=== PATIENT | male | born 1955 | race Caucasian/White ===

== ENCOUNTER → 2021-06-06 14:32 | Outpatient (CLI) | payer MEDICARE, OTHER, SELFPAY ==
[2021-06-06 15:07] LABS: Basophils # 0.2 K/mm3 (0-0.2); Basophils % 2.1 % (0.1-2.0); Eosinophils # 0.6 K/mm3 (0.0-0.4); Eosinophils % 5.8 % (0.1-12.0); Hematocrit 54.5 % (42.0-52.0); Lymphocytes # 3.3 K/mm3 (0.7-4.5); Lymphocytes % 31.9 % (10-50); Mean Corpuscular HGB Conc 31.3 g/dL (31.8-35.4); Mean Corpuscular Hemoglobin 32.8 pg (27.0-31.2); Mean Corpuscular Volume 104.8 fl (80-94); Mean Platelet Volume 9.5 fl (7.4-10.4); Monocytes # 0.6 K/mm3 (0.1-1.0); Monocytes % 5.9 % (1.7-9.3); Neutrophils # 5.7 K/mm3 (1.8-7.8); Neutrophils % 54.4 % (37.0-80.0); Platelet Count 336 K/mm3 (142-424); Red Cell Distribution Width 15.1 % (11.5-17.5); White Blood Count 10.4 K/mm3 (4.8-10.8)
--- NOTE | 2021-06-06 15:07 | CT_ITS ---
FINAL REPORT CLINICAL HISTORY: H/O NICOTINE DEPENDENCE FINDINGS: Low-Dose Chest CT CTDI vol (mGy): 2.90 DLP (mGy-cm): 118.55 Axial images were obtained from the lung apex to the mid abdomen by computed tomography. Low-dose protocol was utilized. FINDINGS: CHEST: There is no axillary adenopathy. There is no mediastinal adenopathy. There is calcified right paratracheal and right hilar lymph nodes. The heart is proper size. There is no pericardial or pleural effusion. On the limited images of the upper abdomen there appears to be aneurysmal dilatation of the proximal abdominal aorta measuring up to 3.7 cm. Lung window images demonstrate mild linear scarring in the right mid lung. There is a tiny, 3 mm nodule in the posterior right upper lobe well seen on image 17 of series 4. IMPRESSION: 3 mm nodule in the posterior right upper lobe. Modifier S: Aneurysmal dilatation of the proximal abdominal aorta measuring up to 3.7 cm. Recommend infused abdomen and pelvis CT for further evaluation. Lung RADS category 2S. Recommend 12 month follow-up low-dose chest CT. Reviewed, Interpreted and Dictated by Jeremiah Barakat MD Transcribed by Francia Flor Authenticated by Jeremiah Barakat MD on 06/06/2021 04:44:22 PM [facility]
[2021-06-06 15:18] LABS: Alanine Aminotransferase 19 U/L (12-78); Albumin Level 4.2 g/dl (3.5-5.0); Albumin/Globulin Ratio 1.3 (1.1-1.8); Alkaline Phosphatase 69 U/L (38-126); Anion Gap 11.6 mEq/L (5-15); Aspartate Amino Transferase 32 U/L (17-59); Blood Urea Nitrogen 10 mg/dl (9-20); Carbon Dioxide 29 mmol/L (22.0-30.0); Chloride 101 mmol/L (98-107); Estimated Glomerular Filt Rate 97 ml/min (>60); GFR (African American) 117 ML/MIN (>60); Globulin 3.3 g/dL (1.3-3.2); Glucose 119 mg/dl (74-100); Potassium 4.6 mmoL/L (3.5-5.1); Sodium 137 mmol/L (136-145); Total Protein,Serum 7.5 g/dl (6.3-8.2)
[2021-06-06 16:15] LABS: Chol/HDL Ratio 3.3 (1-3.5); Cholesterol 195 mg/dl (140-200); HDL Cholesterol 59 mg/dl (40-60); Triglycerides 91 mg/dl (30-150); VLDL Cholesterol 18 mg/dL (0-40)
[2021-06-06 16:45] LABS: Prostate Specific Ag Screen 1.2 ng/ml (0.0-4.0)
[2021-06-06 18:09] LABS: Hemoglobin A1C 5.4 % (4.0-6.0)
== END ==
PROVIDERS: PCP Family Medicine; Visit Provider Family Medicine
DX: Z00.00 Encounter for general adult medical examination without abnormal findings (principal); Z87.891 Personal history of nicotine dependence; Z12.2 Encounter for screening for malignant neoplasm of respiratory organs; R00.0 Tachycardia, unspecified; I10 Essential (primary) hypertension; R73.9 Hyperglycemia, unspecified; J44.9 Chronic obstructive pulmonary disease, unspecified; Z13.220 Encounter for screening for lipoid disorders; Z12.5 Encounter for screening for malignant neoplasm of prostate
CPT/HCPCS: 36415; 71271; 80053; 80061; 83036; 85025; G0103

== ENCOUNTER → 2021-06-26 09:36 | Outpatient (CLI) | payer MEDICARE, OTHER, SELFPAY ==
--- NOTE | 2021-06-26 09:45 | CT_ITS ---
FINAL REPORT CLINICAL HISTORY: ANEURYSM, FINDINGS: Technique: The patient was injected with intravenous contrast. Axial images through the abdomen and pelvis were performed. This study was performed with techniques to keep radiation doses as low as reasonably achievable (ALARA). Individualized dose reduction techniques using automated exposure control or adjustment of mA and/or kV according to the patient's size were employed. Abdomen: The lung bases are clear. The liver is homogeneous. The gallbladder is present. The spleen is unremarkable. The adrenals are normal. The pancreas is unremarkable. The kidneys enhance appropriately. The infrarenal abdominal aorta measures up to 3.6 x 3.7 cm in AP and transverse dimensions. There is mild circumferential mural thrombus. There is no free fluid or adenopathy. Pelvis: The appendix is not identified. The urinary bladder is unremarkable. There is no free fluid or adenopathy. There is extensive sigmoid diverticulosis without evidence of diverticulitis. No pelvic mass or inflammation is identified. IMPRESSION: Moderate abdominal aortic aneurysm measuring 3.7 x 3.6 cm. Recommend continued follow-up. Reviewed, Interpreted and Dictated by Jeremiah Barakat MD Transcribed by Francia Flor Authenticated by Jeremiah Barakat MD on 06/26/2021 12:17:59 PM [facility]
== END ==
PROVIDERS: PCP Family Medicine; Visit Provider Family Medicine
DX: I72.9 Aneurysm of unspecified site (principal)
CPT/HCPCS: 74177; Q9967

== ENCOUNTER 2021-11-02 18:08 | Emergency (ER) | payer MEDICARE, OTHER, SELFPAY ==
--- NOTE | 2021-11-02 18:54 | HMH.EDUTC ---
[facility] [place] Disposition Clinical Impression: Exposure to COVID-19 virus Disposition: Home, Self-Care Condition on Discharge: Good Instructions: DI for COVID-19 (Suspected or Confirmed ), Preventing the Spread of Coronavirus Discharge Instructions Additional Instructions: Drink plenty of fluids. Take tylenol for pain or fever. Return if you begin to have difficulty breathing. Follow up with your regular doctor. GO TO THE ER FOR ANY WORSENING SYMPTOMS Quarantine until you know the results of your covid-19 test. Notify your school or workplace of your results and follow their instructions regarding return to work/school. Referrals: Reno Dasilva MD [Primary Care Provider] - Time of Disposition: 19:02 Medical Decision Making - Medical Records Medical records reviewed: No: I reviewed the patient's medical records. - Stefan Inquiry Pt receiving controlled substance: No Vital Signs: 11/02/21 19:05 11/02/21 19:08 Temperature 98.7 F 98.7 F Temperature Source Oral Pulse Rate 100 H Pulse Rate [Left] 100 H Respiratory Rate 18 18 Blood Pressure 124/91 H Blood Pressure [Right Arm] 124/91 H Blood Pressure Mean [Right Arm] 102 02 Sat by Pulse Oximetry 96 - Lab Data Lab results reviewed: Yes: I reviewed the patient's lab results. [facility] [place] HPI - General Stated complaint: covid test Time Seen by Provider: 11/02/21 18:54 - History of Present Illness Provider Complaint: He states that he was exposed to covid-19 over the past several day by his girlfrieng having it. He denies any symptoms so far. - Related Data Allergies Allergy/AdvReac Type Severity Reaction Status Date / Time No Known Allergies Allergy Verified 11/02/21 19:07 [facility] History - Hepatitis A Screen Attestation statement:: This patient has been screened for Hepatitis A risk factors. ROS Obtained: Yes All systems reviewed & no additional complaints - Constitutional Constitutional: Reports as per HPI - Eyes Eyes: Denies eye discharge - ENT Ears, Nose, Mouth, and Throat: Reports as per HPI Physical Exam - General General appearance: alert, in no apparent distress - Head Head exam: atraumatic, normocephalic, normal inspection - Eye Eye exam: Present: normal appearance, PERRL, EOMI - ENT ENT exam: Present: normal exam, normal oropharynx, mucous membranes moist, TM's normal bilaterally, normal external ear exam - Neck Neck exam: Present: normal inspection, full ROM, trachea midline. Absent: meningismus, lymphadenopathy - Chest Chest inspection: Present: normal inspection, symmetric chest wall rise. Absent: tenderness - Respiratory Respiratory exam: Present: normal lung sounds bilaterally. Absent: respiratory distress - Cardiovascular Cardiovascular exam: Present: regular rate, normal rhythm. Absent: JVD - Abdominal Exam Abdominal exam: Present: soft, normal bowel sounds. Absent: distention, tenderness, guarding - Extremities Exam Extremities exam: Present: normal inspection, full ROM, normal capillary refill. Absent: calf tenderness - Back Exam Back exam: Present: normal inspection. Absent: tenderness - Neurological Exam Neurological exam: Present: alert, oriented X3 - Psychiatric Psychiatric exam: Present: normal affect, normal mood - Skin Skin exam: Present: warm, dry, intact, normal color - Lymphatic Lymphatic Findings: no adenopathy
[2021-11-02 19:05] VITALS: BP 124/91; PULSE 100; RESP 18; TEMP 37.1; O2SAT 96; BMI 24.3
[2021-11-02 19:08] VITALS: BP 124/91; PULSE 100; RESP 18; TEMP 37.1
== END 2021-11-02 19:09 | disposition home or self-care (01) ==
PROVIDERS: Emergency Provider Nurse Practitioner Family; PCP Family Medicine
DX: Z03.89 Encounter for observation for other suspected diseases and conditions ruled out (principal); Z20.822 Contact with and (suspected) exposure to COVID-19
CPT/HCPCS: 99213; C9803; G0463; U0003; U0005